=== PATIENT | female | born 1995 | race Caucasian/White ===

== ENCOUNTER 2023-05-19 14:15 | Emergency (ER) | payer SELFPAY ==
[~2023-05-19] VITALS: Ht 157.5 cm; Wt 72.6 kg
[2023-05-19 15:23] VITALS: BP 142/81; PULSE 69; RESP 18; TEMP 98; O2SAT 98
[2023-05-19] MEDS ORDERED: PROM118S5 PO (17:42)
[2023-05-19] MEDS ORDERED: ACET-9882 PO (17:42)
[2023-05-19 18:28] LABS: FLU B ANTIGEN NEGATIVE (NEGATIVE)
[2023-05-19 18:30] LABS: FLU A ANTIGEN POSITIVE (NEGATIVE)
[2023-05-19] MEDS ORDERED: TAM75 PO (18:42)
[2023-05-19] MEDS ORDERED: ONDA-188 PO (18:42)
== END 2023-05-19 17:58 | disposition home or self-care (01) ==
LOC: MED 14:15
DX: B34.9 Viral infection, unspecified (principal); Z20.822 Contact with and (suspected) exposure to COVID-19; Z79.899 Other long term (current) drug therapy
CPT/HCPCS: 99283